=== PATIENT | female | born 1950 | race Caucasian/White ===

== ENCOUNTER 2019-09-10 13:20 | Emergency (ER) | payer MEDICARE ==
[2019-09-10] MEDS ORDERED: ONDANSETRON ODT 4 MG TAB ONE (14:16)
[2019-09-10] MEDS ORDERED: HYDROMORPHONE 1 MG/1 ML AMP ONE (14:16)
[2019-09-10 15:54] LABS: APPEARANCE,URINE Clear (CLEAR); BILIRUBIN,URINE Negative (NEGATIVE); COLOR,URINE Dark Yellow (YELLOW); GLUCOSE, URINE (UA) Negative (NEGATIVE); KETONES,URINE Negative (NEGATIVE); LEUKOCYTE ESTERASE ,URINE Moderate (NEGATIVE); NITRATE,URINE Negative (NEGATIVE); OCCULT BLOOD,URINE Negative (NEGATIVE); PROTEIN,URINE Negative (NEGATIVE); UROBILINOGEN,URINE 0.2 mg/dL (0.2-1.0)
[2019-09-10 16:04] LABS: BACTERIA,URINE Few /HPF (None Seen); RBC,URINE None Seen /HPF (0-1)
== END 2019-09-10 16:17 | disposition home or self-care (01) ==
LOC: EDH 13:20
DX: M54.5 Low back pain (principal); N39.0 Urinary tract infection, site not specified; I10 Essential (primary) hypertension; Z87.891 Personal history of nicotine dependence; Z90.49 Acquired absence of other specified parts of digestive tract; Z88.0 Allergy status to penicillin; Z88.7 Allergy status to serum and vaccine
CPT/HCPCS: 72100; 81001; 93005; 96372; 99285; J1170